=== PATIENT | male | born 1940 | race Caucasian/White ===

== ENCOUNTER 2017-07-04 12:43 | Inpatient (IN) | payer OTHER ==
--- NOTE | 2017-07-04 12:57 | EDPHY ---
HPI/HX/ROS/PE/MDM Narrative: CHIEF COMPLAINT: Weakness, diarrhea. HPI: This patient is a 76 year old male complaining of weakness and diarrhea onset around 9am today. Three days ago, he went on a 3 mile walk, which is normal for him and he generally completes with no difficulty. He felt achy and more fatigued than usual, as if he had a virus. He checked his blood pressure, which is usually around 130-150 systolic, and found it was at 110 systolic. He discontinued his Losartan and noted no change. This morning, he discontinued his Metoprolol as well. Around 9am today he had watery diarrhea - approximately 1L every 10 minutes, with yellow and brownish flecks. He denies associated pain. He stayed hydrated with Pedialyte and cranberry juice. He began to see a pinkish tinge in his bowel movements, and was concerned regarding possible GI bleed though he has considered cranberry juice as a possible etiology. He denies recent abnormal food intake or contact with ill individuals. He has taken 4 doses of Imodium and has not had a bowel movement since his arrival in the emergency department about 30 minutes ago. No fever, dysuria, or other associated symptoms. REVIEW OF SYSTEMS: Aside from elements discussed in the HPI, a comprehensive 10-point review of systems was reviewed and is negative. PMH: Hypertension. Intermittent atrial fibrillation. Transient ventricular tachycardia. Osteoarthritis right hip (followed by Dr. Renée Galloway). Herniated disc , laminectomy. Bilateral hamstring tears. 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 . PHYSICAL EXAM: General:Patient is alert, in no acute distress. ENT:Eyes are normal to inspection. ENT inspection normal. Neck: Normal inspection. Full range of motion. Respiratory:No respiratory distress. Breath sounds normal bilaterally. Cardiovascular: Regular rate and rhythm. Strong peripheral pulses. Normal cap refill. Abdomen:The abdomen is nontender to palpation. There are no peritoneal signs. There are normal bowel sounds. Back: Normal to inspection. No tenderness to palpation. Skin: Normal color. No rash. Warm and dry. Extremities: Normal appearance. Full range of motion. Neuro: Oriented x3. Normal motor function. Normal sensory function. ED Course: Plan for labs including CBC, BMP, GI pathogen. Plan to establish IV, rehydrate. Anemic. Hematocrit low at 25. Plan to admit for evaluation of possible GI bleed. 13:38 Spoke with hospitalist service. Dr. Rivera accepts admission. MDM: This patient presents with what sounds initially like a diarrheal illness with possibly small bleeding vs. passage of cranberry juice which is discoloring his stool. However, his stool does test positive for occult blood, and notably the patient's Hct is very low - he reports his last test was normal. These factors combined with the fact that the patient is on Eliquis make him fairly high risk for LGIB and complications thereof. As such, I think he requires admission for further workup and observation. He appears quite comfortable and hemodynamically stable here in the ED, so I do not think transfusion is indicated. - Data Points Laboratory Results: Laboratory Results 07/04/17 12:30 07/04/17 12:30 07/04/17 07/04/17 07/04/17 12:30 12:30 12:30 WBC 5.69 10^3/uL 10^3/uL (3.80-9.50) RBC 2.51 10^6/uL L 10^6/uL (4.40-6.38) Hgb 8.5 g/dL L g/dL (13.7-17.5) Hct 25.5 % L % (40.0-51.0) MCV 101.6 fL H fL (81.5-99.8) MCH 33.9 pg pg (27.9-34.1) MCHC 33.3 g/dL g/dL (32.4-36.7) RDW 13.9 % % (11.5-15.2) Plt Count 203 10^3/uL 10^3/uL (150-400) MPV 10.9 fL fL (8.7-11.7) Neut % (Auto) 81.3 % H % (39.3-74.2) Lymph % (Auto) 12.1 % L % (15.0-45.0) [place] % (Auto) 6.0 % % (4.5-13.0) Eos % (Auto) 0.0 % L % (0.6-7.6) Baso % (Auto) 0.2 % L % (0.3-1.7) Nucleat RBC Rel Count 0.4 % H % (0.0-0.2) Absolute Neuts (auto) 4.63 10^3/uL 10^3/uL (1.70-6.50) Absolute Lymphs (auto) 0.69 10^3/uL L 10^3/uL (1.00-3.00) Absolute Monos (auto) 0.34 10^3/uL 10^3/uL (0.30-0.80) Absolute Eos (auto) 0.00 10^3/uL L 10^3/uL (0.03-0.40) Absolute Basos (auto) 0.01 10^3/uL L 10^3/uL (0.02-0.10) Absolute Nucleated RBC 0.02 10^3/uL H 10^3/uL (0-0.01) Immature Gran % 0.4 % % (0.0-1.1) Immature Gran # 0.02 10^3/uL 10^3/uL (0.00-0.10) PT 15.5 SEC H SEC (12.0-15.0) INR 1.23 H (0.83-1.16) APTT 27.0 SEC SEC (23.0-38.0) Sodium 148 mEq/L H mEq/L (134-144) Potassium 4.2 mEq/L mEq/L (3.5-5.2) Chloride 119 mEq/L H mEq/L (97-110) Carbon Dioxide 21 mEq/l L mEq/l (22-31) Anion Gap 8 mEq/L mEq/L (8-16) BUN 21 mg/dL mg/dL (7-23) Creatinine 1.1 mg/dL mg/dL (0.7-1.3) Estimated GFR > 60 Glucose 162 mg/dL H mg/dL (70-100) Calcium 8.6 mg/dL mg/dL (8.5-10.4) General Time Seen by Provider: 07/04/17 12:47 Initial Vital Signs: Initial Vital Signs Temperature (C) 37 C 07/04/17 12:45 Heart Rate 74 07/04/17 12:45 Respiratory Rate 18 07/04/17 12:45 Blood Pressure 151/60 H 07/04/17 12:45 O2 Sat (%) 97 07/04/17 12:45 O2 Delivery Mode Room Air Allergies/Adverse Reactions: codeine Allergy (Verified 07/04/17 13:39) Rash Home Medications: Medication Instructions Recorded Apixaban [Eliquis] 2.5 mg PO BID 07/04/17 Ascorbic Acid [Vitamin C 500 mg 1,000 mg PO DAILY 07/04/17 (*)] Atorvastatin Calcium [Lipitor 40 40 mg PO HS 07/04/17 mg (*)] Clarithromycin [Biaxin (*)] 500 mg PO BID 07/04/17 Herbals/Supplements -Info Only 1 ea PO DAILY 07/04/17 Losartan Potassium [Cozaar 50 mg 50 mg PO HS 07/04/17 (*)] Metoprolol Succinate Xr [Toprol Xl 100 mg PO BID 07/04/17 100 mg (*)] Omeprazole [Prilosec 20 mg] 20 mg PO HS 07/04/17 celeCOXIB [CeleBREX] 100 mg PO BID 07/04/17 Departure - Departure Disposition: [facility] Inpatient Acute Clinical Impression: GI bleed Qualifiers: GI bleed type/associated pathology: unspecified gastrointestinal hemorrhage type Qualified Code(s): K92.2 - Gastrointestinal hemorrhage, unspecified Condition: Fair Report Scribed for: Chris Espinal Report Scribed by: Sabina Haskins Date of Report: 07/04/17 Time of Report: 13:22 Physician Review and Approval Statement: Portions of this note were transcribed by an ED scribe. I personally performed the history, physical exam, and medical decision making; and confirm the accuracy of the information in the transcribed note.
[2017-07-04 13:01] LABS: % IMMATURE GRANULYOCYTES 0.4 % (0.0-1.1); ABSOLUTE IMMATURE GRANULOCYTES 0.02 10^3/uL (0.00-0.10); ABSOLUTE NRBC COUNT 0.02 10^3/uL (0-0.01); ADD DIFF? NO; ADD MORPH? NO; ADD SCAN? NO; ATYPICAL LYMPHOCYTE FLAG 0 (0-99); FRAGMENT RBC FLAG 0 (0-99); HEMATOCRIT 25.5 % (40.0-51.0); HEMOGLOBIN 8.5 g/dL (13.7-17.5); LEFT SHIFT FLG 0 (0-99); LIPEMIA HEMOLYSIS FLAG 80 (0-99); MEAN CELL HEMOGLOBIN 33.9 pg (27.9-34.1); MEAN CELL HEMOGLOBIN CONCENTR. 33.3 g/dL (32.4-36.7); MEAN CELL VOLUME 101.6 fL (81.5-99.8); MEAN PLATELET VOLUME 10.9 fL (8.7-11.7); NRBC-AUTO% 0.4 % (0.0-0.2); PLATELET CLUMPS FLAG 10 (0-99); PLATELET COUNT 203 10^3/uL (150-400); RED BLOOD CELL COUNT 2.51 10^6/uL (4.40-6.38); RED CELL DISTRIBUTION WIDTH 13.9 % (11.5-15.2)
[2017-07-04 13:12] LABS: ANION GAP 8 mEq/L (8-16); CALCIUM 8.6 mg/dL (8.5-10.4); CARBON DIOXIDE 21 mEq/l (22-31); CHLORIDE 119 mEq/L (97-110); CREATININE 1.1 mg/dL (0.7-1.3); GLOMERULAR FILTRATION RATE > 60; GLUCOSE 162 mg/dL (70-100); POTASSIUM 4.2 mEq/L (3.5-5.2); SODIUM 148 mEq/L (134-144)
[2017-07-04 13:37] LABS: INR 1.23 (0.83-1.16); PROTIME(PATIENT) 15.5 SEC (12.0-15.0)
[2017-07-04] MEDS ORDERED: ONDANSETRON 4 MG/2 ML VIAL IVP PRN (15:12)
[2017-07-04] MEDS ORDERED: ACETAMINOPHEN 325 MG TAB PO PRN (15:12)
[2017-07-04] MEDS ORDERED: ONDANSETRON DISINTEGRATING 4 MG TAB PO PRN (15:12)
--- NOTE | 2017-07-04 17:06 | GHP ---
[f rep st] HISTORY AND PHYSICAL DATE OF ADMISSION: 07/04/2017 CHIEF COMPLAINT: Weakness, bloody diarrhea. PRIMARY PHYSICIAN: Dr. Roach at [facility]. 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 this morning. Three days ago, he went on a 3-mile walk which is his normal exercise, but noted feeling more dizzy and fatigued. He wondered if he was coming down with a virus. He checked his blood pressure, which is normally systolic 130-150, and it was lower at 110. He discontinued his losartan, as well as his metoprolol. At 9 a.m. this morning, he had a large volume of diarrhea, approximately a liter every 10 minutes, with yellow brownish flakes. He was drinking Pedialyte with cranberry this morning and noticed a pinkish hue to his bowel movements. He has taken 4 doses of Imodium and has not had a bowel movement since. He denies any fevers, chills, or sweats. No chest pain, dizziness. He is on chronic clarithromycin for recurrent epididymitis. The patient is on Eliquis for paroxysmal atrial fibrillation. Last dose was taken this morning. He did hold his metoprolol dose after having diarrhea. REVIEW OF SYSTEMS: I completed a 10-point review of systems, negative except as noted in HPI. PAST MEDICAL HISTORY: Hypertension, paroxysmal atrial fibrillation, history of ventricular tachycardia, OA of the right hip, herniated disk, bilateral hamstring tears, hyperlipidemia, chronic epididymitis on chronic antibiotics, stent to the left iliac artery. PAST SURGICAL HISTORY: Laminectomy, vasectomy, right knee surgery, inguinal hernia repair. FAMILY HISTORY: Mother with breast cancer. Father with a hemorrhage. 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 A glass of wine 2 times a week. No tobacco or illicits. HOME MEDICATIONS: Eliquis, vitamin C, Celebrex, omeprazole 20 mg daily, herbal supplements, atorvastatin 40 mg daily, metoprolol 100 mg twice daily, losartan 50 mg at bedtime, clarithromycin 500 mg twice daily, and Eliquis 2.5 mg twice daily. ALLERGIES: Codeine. PHYSICAL EXAMINATION: VITAL SIGNS: Temperature 36.8, blood pressure 148/69, heart rate 70s, respirations 96% on room air. GENERAL: Mildly pale. HEENT: PERRLA. Conjunctival pallor. Moist mucous membranes. CV: Regular rate and rhythm. No murmurs, gallops, or rubs. LUNGS: Clear to auscultation bilaterally. ABDOMEN: Soft, nontender, nondistended. Positive bowel sounds. : No suprapubic tenderness. MUSCULOSKELETAL: 5/5 upper and lower extremity strength. NEUROLOGIC: 2-12 intact. PSYCH: Alert and oriented x3. LABORATORY DATA: Sodium 148, potassium 4.2, chloride 119, carbon dioxide 21, creatinine 1.1; I do not have baseline. Glucose 162, calcium 8.6. INR is 1.2, PT is 15. WBCs 5, hemoglobin 8, hematocrit 25, MCV is 101 (per patient his last normal hematocrit was 40 at his PCP's). Fecal occult blood positive. GI PCR pending. ASSESSMENT AND PLAN: 1. Concern for acute GI bleed: red stools concerning for GI bleed while on Eliquis and Celebrex. Baseline Hct 40. He is hemodynamically stable with systolics 140s. Will hydrate, repeat H/H. Patient would rather go home, however I did recommend admission and that he would have to sign out AMA. I discussed case with Dr. Lozada. 2. Acute diarrhea: ddx includes bacterial infection like C difficile since on chronic antibiotics. He did have sushi last night. GI panel is pending. We will hold off on Imodium as he has taken 4 doses today. Will hydrate. 3. Hyperlipidemia: statin. 4. Hypertension: hold antihypertensives in the morning if blood pressure stable. 5. Gastroesophageal reflux disease: Continue PPI. 6. Macrocytic anemia: check B12, folate 7. Diet: Clears. 8. Deep vein thrombosis prophylaxis: SCDs given concern for GI bleed. Disposition: Patient warrants observation admission given concern for acute GI bleed requiring serial H and H and IV fluids. /[id number]/MODL MTDD
[2017-07-04 18:48] LABS: HEMATOCRIT 23.1 % (40.0-51.0); HEMOGLOBIN 7.7 g/dL (13.7-17.5)
[2017-07-04] MEDS: ATORVASTATIN CALCIUM 40 MG TAB PO SCH (20:22)
[2017-07-04] MEDS: PANTOPRAZOLE SODIUM 40 MG TAB PO SCH (20:22)
[2017-07-04] MEDS ORDERED: NON-FORMULARY NEW DRUG (Omeprazole [Prilosec 20 Mg] 20 MG) PO SCH (21:00)
[2017-07-05 00:35] LABS: HEMATOCRIT 20.8 % (40.0-51.0)
[2017-07-05] MEDS: NS 1,000 ML IV SCH ×2 (04:26→19:43)
[2017-07-05 05:08] LABS: HEMATOCRIT 21.2 % (40.0-51.0); MEAN CELL HEMOGLOBIN 34.1 pg (27.9-34.1); MEAN CELL VOLUME 103.4 fL (81.5-99.8); RED BLOOD CELL COUNT 2.05 10^6/uL (4.40-6.38); RED CELL DISTRIBUTION WIDTH 14.6 % (11.5-15.2)
[2017-07-05 05:34] LABS: ANION GAP 8 mEq/L (8-16); CALCIUM 7.7 mg/dL (8.5-10.4); CARBON DIOXIDE 22 mEq/l (22-31); CHLORIDE 112 mEq/L (97-110); GLOMERULAR FILTRATION RATE > 60; GLUCOSE 90 mg/dL (70-100); POTASSIUM 3.6 mEq/L (3.5-5.2); SODIUM 142 mEq/L (134-144)
[2017-07-05] MEDS: ASCORBIC ACID 500 MG TAB PO SCH (09:16)
--- NOTE | 2017-07-05 09:17 | HOSPPROG ---
Hospitalist Progress Note Assessment/Plan: #Symptomatic blood loss anemia: due to LGIB in setting of Eliquis. Last colonoscopy age 58 showed diverticulosis. Hold AC. Transfuse [address] Johnson to see today #Paroxysmal a fib: rate-controlled. Hold AC #HLD: statin #GERD: PPI #Acute diarrhea: PCR negative. No BM since taking immodium #Recurrent epididymitis: restart home abx since negative C diff #Diet: clears #DVT ppx: SCDs #Disp: warrants inpt admission with acute blood loss, requiring transfusion, endoscopy Subjective: no BM since yesterday after taking Immodium. Tired this morning Objective: Vital Signs Temp Pulse Resp BP Pulse Ox 36.8 C 78 16 124/63 H 94 07/05/17 04:18 07/05/17 04:18 07/05/17 04:18 07/05/17 04:18 07/05/17 04:18 Microbiology 07/04/17 14:50 Gastrointestinal Tract Panel (PCR) - Final Stool No Organism Detected Laboratory Results 07/05/17 04:19 07/05/17 04:19 07/04/17 07/05/17 07/06/17 05:59 05:59 05:59 Intake Total 500 Output Total 450 Balance 50 PT 15.5 SEC (12.0-15.0) H 07/04/17 12:30 INR 1.23 (0.83-1.16) H 07/04/17 12:30 - Physical Exam Constitutional: other (pale) Eyes: pale conjunctiva Ears, Nose, Mouth, Throat: moist mucous membranes, hearing normal Cardiovascular: regular rate and rhythym, no murmur, rub, or gallop Respiratory: no respiratory distress, no rales or rhonchi Gastrointestinal: normoactive bowel sounds, soft, non-tender abdomen Genitourinary: no bladder fullness Skin: warm Musculoskeletal: full muscle strength Neurologic: AAOx3, CN II-XII Intact Psychiatric: interacting appropriately ICD10 Worksheet Patient Problems: Problems Problem Status Onset GI bleed Acute
[2017-07-05] MEDS: CLARITHROMYCIN 500 MG TAB PO SCH ×2 (11:20→20:39)
[2017-07-05] MEDS ORDERED: GOLYTELY 4000 ML BTL PO ONE (11:29)
--- NOTE | 2017-07-05 12:33 | GCON ---
[f rep st] CONSULTATION GASTROENTEROLOGY INPATIENT CONSULTATION DATE OF CONSULTATION: 07/05/2017 I was kindly requested to see the patient by Dr. Tamara Rivera in consultation for a chief complaint of anemia. 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 He was in his usual state of health until approximately 4 days ago. Then, he began to feel somewhat weak, as if he was having the beginnings of a viral process. On the morning of admission, he developed acute diarrhea, quite watery, large volume, every 15 minutes. To stay hydrated, he drank some Pedialyte and cranberry juice, and did note a pinkish tinge in his bowel movements toward the end. He took Imodium, which helped, but because of the above, presented to the emergency department. He denies a chronic problem with diarrhea. He denies bright red blood per rectum, melena, maroon stools. He denies abdominal pain. Upon admission, he was noted to have a hematocrit of 25%. Today, it is 20.8% and then 21.2%. He is now receiving 1 unit of packed RBCs. He states his baseline hematocrit is in the 40s. His last colonoscopy was at age 58, where he was found to have diverticulosis. Of note, his MCV is 103. He states he has not had a recent B12, folate, thyroid checked. He does take oral B12 and folate. PAST MEDICAL HISTORY: 1. As above. 2. Atrial fibrillation. 3. Hypertension. 4. Recurrent epididymitis. 5. Past ventricular tachycardia. 6. Osteoarthritis. 7. Elevated lipids. 8. Otherwise noncontributory. ALLERGIES: Include codeine. MEDICATIONS: Outpatient medications include losartan, metoprolol, clarithromycin, Eliquis, Celebrex, omeprazole 20 mg daily and a statin. Inpatient medications include vitamin C, clarithromycin, Lipitor, Protonix 40 mg daily, and normal saline IV. 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 He is . His son's name is karla Fragoso #[phone]. FAMILY HISTORY: Negative for similar anemia. REVIEW OF SYSTEMS: Positive pertinent review of systems as per my HPI. Otherwise, a complete review of systems is negative. PHYSICAL EXAM: CONSTITUTIONAL: Nontoxic, pleasant gentleman. SKIN: Warm, dry. EYES: Pupils equal, round, reactive to light and accommodation. EARS, NOSE, MOUTH AND THROAT: Oropharynx without masses. Moist mucosa. CARDIOVASCULAR: Normal S2, normal PMI. RESPIRATORY: Lungs are clear to auscultation and percussion anteriorly. GASTROINTESTINAL: Abdomen soft, nontender. NEUROLOGIC: Grossly nonfocal. Cranial nerves grossly intact. PSYCHIATRIC: Orientation and insight appropriate. MUSCULOSKELETAL: Grossly normal throughout. Normal station. LABORATORIES: Include the above. Normal basic metabolic panel. Prothrombin time 15 with an INR of 1.2. Normal platelet count. ASSESSMENT: 1. Acute diarrhea. Now, seems to have stopped after Imodium use. With his prodrome, and the very acute nature of his diarrhea, I suspect this indeed was most likely a viral gastroenteritis or possibly food poisoning. I suspect it might be unrelated to the finding of anemia, which might be a more chronic process. Presently, he seems to be doing better in this regard. 2. Anemia. Somewhat profound, and different from his baseline. Certainly, this could represent a gastrointestinal source of blood loss. This could include a colonic lesion, such as colon cancer, colitis, Crohn's, arteriovenous malformation, microscopic colitis, etc. An upper gastrointestinal source, such as a silent duodenal ulcer from Celebrex use, gastric cancer, celiac disease, etc., is also possible. With his high MCV, a nondigestive source of anemia, such as B12 deficiency, folate deficiency, a bone marrow process, etc., is possible. PLAN: 1. Gentle prep today, and proceed with upper endoscopy with duodenal biopsies, colonoscopy with intubation of the terminal ilium and random biopsies tomorrow. 2. We will check a B12, folate, TSH. 3. Further management pending the above. Thank you for allowing me to help in the care of this patient. Copy requested to: Dr. Carlos Roach [facility] /[id number]/MODL MTDD
[2017-07-05 14:39] LABS: HEMATOCRIT 26.7 % (40.0-51.0); HEMOGLOBIN 8.9 g/dL (13.7-17.5)
[2017-07-05 15:55] LABS: FOLATE SERUM > 20.00 ng/mL (2.80 - >20.00)
[2017-07-05] MEDS: ATORVASTATIN CALCIUM 40 MG TAB PO SCH (20:37)
[2017-07-05] MEDS: PANTOPRAZOLE SODIUM 40 MG TAB PO SCH (20:37)
[2017-07-05] MEDS: METOPROLOL TARTRATE 25 MG TAB PO SCH (20:38)
[2017-07-05] MEDS ORDERED: METOPROLOL TARTRATE 50 MG TAB PO SCH (21:00)
[2017-07-06 05:02] LABS: HEMATOCRIT 23.5 % (40.0-51.0); HEMOGLOBIN 8.1 g/dL (13.7-17.5); MEAN CELL HEMOGLOBIN CONCENTR. 34.5 g/dL (32.4-36.7); MEAN CELL VOLUME 98.7 fL (81.5-99.8); RED BLOOD CELL COUNT 2.38 10^6/uL (4.40-6.38); RED CELL DISTRIBUTION WIDTH 15.9 % (11.5-15.2)
[2017-07-06] MEDS ORDERED: MIDAZOLAM 2 MG/2 ML VIAL ONE ×2 (09:38→10:03)
[2017-07-06] MEDS ORDERED: fentaNYL 100 MCG/2 ML INJ ONE (09:39)
[2017-07-06] MEDS ORDERED: fentaNYL 100 MCG/2 ML INJ IVP ONE (09:50)
[2017-07-06] MEDS ORDERED: MIDAZOLAM 2 MG/2 ML VIAL IVP ONE (09:50)
--- NOTE | 2017-07-06 11:32 | GPN ---
[f rep st] PROCEDURE NOTE DATE OF PROCEDURE: 07/06/2017 PROCEDURES: Upper endoscopy with biopsy, colonoscopy with biopsy. INDICATIONS AND PREPROCEDURE DIAGNOSES: Acute diarrhea, now essentially resolved. Anemia, with a normal MCV. Of note, his B12, folate, and TSH returned normal. POSTPROCEDURE DIAGNOSES: UPPER ENDOSCOPY: Normal. Duodenal biopsies performed. COLONOSCOPY: 1. Quinn diverticulosis. 2. Several small polyps, removed (see below). 3. Normal terminal ilium. 4. Random biopsies done of the colon. PREMEDICATION: Fentanyl 200 mcg IV, Versed 7 mg IV. COMPLICATIONS: None. FINDINGS: After informed consent was obtained, the patient was placed in the left lateral decubitus position. Video upper endoscope was placed under direct visualization and advanced. Esophagus and duodenum were normal. Stomach was normal, except for very mild atrophic gastritis. Biopsies were done of the duodenum, to rule out a selective iron-deficiency sprue. Of note, the full length of the endoscope was used to look at as much small bowel as possible. The patient's gurney was then turned around. Video adult colonoscope was placed in rectum, advanced to the terminal ilium. The terminal ileum was normal. Upon slow withdrawal, the colon had quinn diverticulosis. There were 4 polyps seen in the transverse colon, 3 being 3 mm in size, and 1 being 5 mm in size. The smaller polyps were all removed with cold biopsy forceps. The 5 mm polyp was removed with cold snare. Random biopsies were done throughout the colon. Small internal hemorrhoids. IMPRESSION: No source found for anemia. With his normal MCV, it is certainly possible that this could be non digestive in nature. Otherwise, in terms of his acute diarrhea, no etiology found, as well. This now seems to have resolved. Overall, suspect this was a viral gastroenteritis ( versus possible food poisoning). PLAN: 1. We will let him eat. 2. Buff cap IV. 3. I will obtain an iron, TIBC, and ferritin on his admission blood work, before he received his transfusion. I will follow up on this as an outpatient. If this shows iron deficiency, we will then arrange an outpatient small-bowel pill camera endoscopy, to see if there is a small bowel source of blood loss. If no evidence of iron deficiency, then suspect he will need a Hematology consultation, for consideration of bone marrow biopsy, etc. 4. From a GI standpoint, okay to discharge home. I will follow up on the above. I will also follow up on his biopsies, but suspect will be unremarkable. Thank you for allowing me to help in the management of the patient. Copy requested to: Skip Roach MD [facility], [place] /[id number]/MODL MTDD
--- NOTE | 2017-07-06 11:52 | HOSPPROG ---
Hospitalist Progress Note Assessment/Plan: #Symptomatic blood loss anemia: due to LGIB in setting of Eliquis. Responded to tranfusion. Endoscopy showed quinn-diverticulosis. Polyps removed. HÉCTOR Johnson for capsule endoscopy. #Paroxysmal a fib: rate-controlled. Hold AC #HLD: statin #GERD: PPI #Acute diarrhea: PCR negative. No BM since taking immodium #Recurrent epididymitis: restart home abx since negative C diff #Diet: clears #DVT ppx: SCDs #Disp:DC today Subjective: no dizziness Objective: Vital Signs Temp Pulse Resp BP Pulse Ox 36.8 C 74 13 121/73 H 99 07/06/17 11:21 07/06/17 11:21 07/06/17 11:30 07/06/17 11:21 07/06/17 11:30 Laboratory Results 07/06/17 04:44 07/05/17 07/06/17 07/07/17 05:59 05:59 05:59 Intake Total 3000 Output Total 800 Balance 2200 PT 15.5 SEC (12.0-15.0) H 07/04/17 12:30 INR 1.23 (0.83-1.16) H 07/04/17 12:30 - Physical Exam Constitutional: no apparent distress Eyes: PERRL, pale conjunctiva Ears, Nose, Mouth, Throat: moist mucous membranes Cardiovascular: regular rate and rhythym Respiratory: no respiratory distress, no rales or rhonchi Gastrointestinal: normoactive bowel sounds, soft, non-tender abdomen, no palpable masses Genitourinary: no bladder fullness Skin: warm Musculoskeletal: full muscle strength Neurologic: AAOx3, CN II-XII Intact Psychiatric: interacting appropriately ICD10 Worksheet Patient Problems: Problems Problem Status Onset GI bleed Acute
[2017-07-06] MEDS: CLARITHROMYCIN 500 MG TAB PO SCH (12:04)
[2017-07-06] MEDS: METOPROLOL TARTRATE 25 MG TAB PO SCH (12:04)
[2017-07-06] MEDS: ASCORBIC ACID 500 MG TAB PO SCH (12:04)
[2017-07-06 12:14] VITALS: RESP 16
[2017-07-06 12:26] LABS: % SATURATION 11 % (20-55); TOTAL IRON BINDING CAPACITY 249 ug/dL (260-490)
[2017-07-06 12:45] VITALS: BP 101/58; PULSE 70; TEMP 99.1; O2SAT 92
[2017-07-06 12:52] LABS: FERRITIN - BCH 75.4 ng/mL (17.9-464.0)
--- NOTE | 2017-07-06 14:57 | GDS ---
[f rep st] DISCHARGE SUMMARY DISCHARGE DIAGNOSES: 1. Acute lower gastrointestinal bleed. 2. Paroxysmal atrial fibrillation, on Eliquis. 3. Hyperlipidemia. 4. Gastroesophageal reflux disease. 5. Acute diarrhea. 6. Recurrent epididymitis, on chronic suppression with antibiotics. 7. Iron-deficiency anemia. 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 Three days ago, he went on a 3- mile walk, which is normal for him and felt more dizzy and fatigued, like he was getting a viral infection. He took his blood pressure and noted it to be lower than his normal; thus, he self-stopped his losartan and metoprolol. Date of admission he had several episodes of large-volume diarrhea of up to a liter, and noticed a pinkish-reddish discoloration. He took 4 doses of Imodium. HOSPITAL COURSE BY PROBLEM: 1. Iron-deficiency anemia: Patient has a normal MCV, with TSH, folate and B12. He underwent endoscopy which showed pandiverticulosis, but no overt bleeding. Biopsies obtained and polyp removal. Dr. Johnson, with gastroenterology , will follow him as an outpatient and arrange for an outpatient small bowel pill camera. He will stop his Eliquis and Celebrex. 2. Hypertension: Holding his blood pressure medications until he follows up with his primary care physician. May consider decreasing metoprolol doses. Heart rates have been in the 70s here on a lower dose with soft blood pressures. 3. Hyperlipidemia, statin. 4. Chronic epididymitis: He is chronic clarithromycin. Clostridium difficile negative here. 5. Acute diarrhea: Likely viral gastroenteritis versus food poisoning, as he did have sushi the night prior. The PCR panel was negative. 6. Gastroesophageal reflux disease, proton pump inhibitor. DISPOSITION: Patient is stable for discharge home with his . FOLLOWUP: 1. Dr. Skip Roach, his PCP. 2. Dr. Oliverio Johnson, with gastroenterology. 3. Pending pathology of polyps. MEDICATION CHANGES: Stop Eliquis and Celebrex. New is ferrous sulfate. /[id number]/MODL MTDD
== END 2017-07-06 14:29 | disposition home or self-care (01) | DRG 379 ==
LOC: EDUNIT# → F1N 15:42 → OBSVTOIN 07-05 09:18
PROVIDERS: ADMIT Internal Medicine; ATTEND Internal Medicine
DX: K92.2 Gastrointestinal hemorrhage, unspecified (principal); D50.9 Iron deficiency anemia, unspecified; K57.30 Diverticulosis of large intestine without perforation or abscess without bleeding; N45.1 Epididymitis; D12.3 Benign neoplasm of transverse colon; E78.5 Hyperlipidemia, unspecified; K21.9 Gastro-esophageal reflux disease without esophagitis; Z79.01 Long term (current) use of anticoagulants; Z79.2 Long term (current) use of antibiotics; A08.4 Viral intestinal infection, unspecified; A05.9 Bacterial foodborne intoxication, unspecified; I10 Essential (primary) hypertension; M16.11 Unilateral primary osteoarthritis, right hip
CPT/HCPCS: 82607-90; G0378; J2250; J3010; P9016